=== PATIENT | male | born 1965 | race Caucasian/White ===

== ENCOUNTER 2019-04-03 21:34 | Emergency (ER) | payer SELFPAY ==
[2019-04-04] MEDS ORDERED: Fluorescein Sodium TOPICAL* 1 MG TEST STRIP OPHTHALMIC ONE (00:22)
[2019-04-04] MEDS ORDERED: Tetracaine 0.5% OPTH.SOL 4 ML* 1 DROP BTL SCH (00:30)
[2019-04-04] MEDS ORDERED: Tetracaine 0.5% OPTH.SOL 4 ML* 1 DROP BTL ONE (00:46)
[2019-04-04] MEDS ORDERED: diPHENhydraMINE PO* 25 MG PO ONE (00:46)
[2019-04-04] MEDS ORDERED: predniSONE TAB* 20 MG PO ONE (00:58)
[2019-04-04] MEDS ORDERED: Gentamicin 0.3% OPHTH.SOLN* 5 ML BTL LEFT EYE SCH (01:00)
--- NOTE | 2019-04-04 01:04 | ED ---
Throat Pain/Nasal Congestion - HPI Summary HPI Summary: Patient complains of left eye pain after being stung by wasps and periorbital area. States he feels like he has a foreign body present in left eye. Patient states he took Benadryl prior to arrival with significant reduction in periorbital swelling. Denies any other pain in her symptoms. Denies vision change. - History of Current Complaint Chief Complaint: EDGeneral Time Seen by Provider: 04/04/19 00:14 Hx Obtained From: Patient Onset/Duration: Sudden Onset Severity: Mild Associated Signs And Symptoms: Positive: Negative Cough: None - Allergies/Home Medications Allergies/Adverse Reactions: Allergies Allergy/AdvReac Type Severity Reaction Status Date / Time No Known Allergies Allergy Verified 04/03/19 21:47 PMH/Surg Hx/FS Hx/Imm Hx Endocrine/Hematology History: Denies: Hx Sickle Cell Disease Cardiovascular History: Denies: Hx Pacemaker/ICD History: Denies: Hx Dialysis Sensory History: Denies: Hx Eye Prosthesis Opthamlomology History: Denies: Hx Legally Blind EENT History: Denies: Hx Deafness Neurological History: Denies: Hx Dementia Psychiatric History: Denies: Hx Autism Infectious Disease History: No Infectious Disease History: Denies: Traveled Outside the [place] in Last 30 Days - Family History Known Family History: Positive: Non-Contributory - Social History Alcohol Use: None Substance Use Type: Reports: None Smoking Status (MU): Never Smoked Tobacco Review of Systems Constitutional: Negative Positive: Other ENT: Negative Cardiovascular: Negative Respiratory: Negative Gastrointestinal: Negative Genitourinary: Negative Musculoskeletal: Negative Skin: Negative Neurological: Negative Psychological: Normal All Other Systems Reviewed And Are Negative: Yes Physical Exam - Summary Physical Exam Summary: Very minimal periorbital swelling and erythema. No extra warmth, ecchymosis noted. EOMI. PERRLa. Positive corneal abrasion on exam. Triage Information Reviewed: Yes Vital Signs On Initial Exam: Initial Vitals Temp Pulse Resp BP Pulse Ox 98.5 F 68 16 137/76 95 04/03/19 21:43 04/03/19 21:43 04/03/19 21:43 04/03/19 21:43 04/03/19 21:43 Vital Signs Reviewed: Yes Appearance: Positive: Well-Appearing Skin: Positive: Warm Head/Face: Positive: Normal Head/Face Inspection Eyes: Positive: EOMI, ECHO, Conjunctiva Clear. Negative: Discharge ENT: Positive: Normal ENT inspection Neck: Positive: Supple Respiratory/Lung Sounds: Positive: Clear to Auscultation Cardiovascular: Positive: Normal Abdomen Description: Positive: Nontender Musculoskeletal: Positive: Normal Neurological: Positive: Normal Psychiatric: Positive: Normal AVPU Assessment: Alert - Saima Coma Scale Best Eye Response: 4 - Spontaneous Best Motor Response: 6 - Obeys Commands Best Verbal Response: 5 - Oriented Coma Scale Total: 15 Diagnostics - Vital Signs Vital Signs Temp Pulse Resp BP Pulse Ox 04/03/19 23:38 98.2 F 72 18 128/79 98 04/03/19 21:43 98.5 F 68 16 137/76 95 - Laboratory Lab Statement: Any lab studies that have been ordered have been reviewed, and results considered in the medical decision making process. EENT Course/Dx - Course Course Of Treatment: Patient complains of left eye pain after being stung by wasps and periorbital area. States he feels like he has a foreign body present in left eye. Patient states he took Benadryl prior to arrival with significant reduction in periorbital swelling. Denies any other pain in her symptoms. Denies vision change. Vital signs within normal limits. Rx for gentamicin drops every 4 hours in left eye. Follow-up with ophthalmology. - Diagnoses Provider Diagnoses: Corneal abrasion, left, Insect bite Discharge - Sign-Out/Discharge Documenting (check all that apply): Patient Departure Patient Received Moderate/Deep Sedation with Procedure: No - Discharge Plan Condition: Stable Disposition: HOME Prescriptions: predniSONE TAB* [Deltasone 20 MG TAB*] 40 mg PO DAILY 5 Days #10 tab Patient Education Materials: Insect Bite or Sting (ED), Corneal Abrasion (ED) Referrals: Kaur Cano DO [Primary Care Provider] - Naman Lobo MD [Medical Doctor] - Additional Instructions: 2 drops of antibiotic solution in left eye every 4 hours. Take prednisone as directed for skin reaction to insect bite. Follow-up with ophthalmology Dr. Lobo for further evaluation of corneal abrasion to left eye. - Billing Disposition and Condition Condition: STABLE Disposition: Home
[2019-04-04 01:17] VITALS: BP 135/91
== END 2019-04-04 01:17 | disposition home or self-care (01) ==
LOC: ED 21:34
DX: S05.02XA Injury of conjunctiva and corneal abrasion without foreign body, left eye, initial encounter (principal); T63.441A Toxic effect of venom of bees, accidental (unintentional), initial encounter; Y92.9 Unspecified place or not applicable
CPT/HCPCS: 99282; A9270-GY; J7512